=== PATIENT | female | born 1950 | race Caucasian/White ===

== ENCOUNTER 2021-08-22 11:18 | Inpatient (IN) ==
[2021-08-22] MEDS ORDERED: 0.9 % SODIUM CHLORIDE 1,000 ML IV ONE (12:08)
--- NOTE | 2021-08-22 12:13 | Emergency Department Note ---
HPI General Chief complaint: Weakness Stated complaint: weakness Time Seen by Provider: 08/22/21 11:58 Source: EMS Mode of arrival: EMS Limitations: no limitations History of Present Illness HPI Narrative: Narrative: 70 yo F w/ h/o DM2, CKD, HTN, CHF, AF, p/w generalized weakness. She reports that over the past week she has been increasingly weak and now no longer has the strength to get to the bathroom on her own. She was Dx'd w/ a UTI around , and was started on macrobid. Some time later her PCP changed the abx to cipro. While not stated, based on her description this seems to have been from a UCx result. She started cipro but then developed nausea, vomiting, and "explosive diarrhea". Shortly thereafter she stopped the medication. The nausea and vomiting have improved however the diarrhea persists. She has little appetite and feels generalized weakness. She also notes some urinary and fecal incontinence. She reports that she was switched back to macrobid after stopping the cipro. Related Data Home Medications Medication Instructions Recorded Confirmed acetaminophen 325 mg capsule 325 mg PO .COMPLEX PRN 05/29/19 07/07/21 (Tylenol) aflibercept 2 mg/0.05 mL 2 mg INTRAVITRE Q8W ml 05/29/19 07/07/21 intravitreal solution for injection (Eylea) furosemide 20 mg tablet 20 mg PO QAM 05/29/19 07/07/21 insulin aspart U-100 100 unit/mL See Rx Instructions SUB-Q TID 08/06/19 07/07/21 subcutaneous solution insulin glargine 100 unit/mL (3 25 unit SUB-Q QDAY ml 08/06/19 07/07/21 mL) subcutaneous pen (Lantus Solostar U-100 Insulin) apixaban 5 mg tablet (Eliquis) 5 mg PO BID 02/12/20 07/07/21 clobetasol 0.05 % topical cream 1 applic TOPICAL BID PRN g 04/09/21 07/07/21 metoprolol succinate 25 mg 25 mg PO QDAY tab 06/21/21 07/07/21 tablet,extended release 24 hr Previous Rx's Medication Instructions Recorded estradiol See Rx Instructions VAGINAL 08/07/19 .COMPLEX #42.5 g ferrous sulfate 325 mg (65 mg 325 mg PO QDAY #90 tab 06/21/21 iron) tablet Allergies Allergy/AdvReac Type Severity Reaction Status Date / Time codeine Allergy Severe Anaphylaxis Verified 07/07/21 08:28 Penicillins Allergy Severe Anaphylaxis Verified 07/07/21 08:28 pentazocine [From Talwin] Allergy Severe hallunicati Verified 07/07/21 08:28 on Sulfa (Sulfonamide Allergy Intermediate FACIAL Verified 07/07/21 08:28 Antibiotics) SWELLING [SULFA (SULFONAMIDE ANTIBIOTICS)] adhesive tape Allergy Unknown Blister Verified 07/07/21 08:28 epinephrine Allergy Unknown Unknown Verified 07/07/21 08:28 iodine Allergy Unknown Head to Verified 07/07/21 08:28 toe rash, "pumpkin orange" latex Allergy Unknown Unknown Verified 07/07/21 08:28 metformin Allergy Unknown Unknown Verified 07/07/21 08:28 ADHESIVE TAPE Allergy Severe Hives Uncoded 07/07/21 08:28 dye Allergy Unknown Unknown Uncoded 07/07/21 08:28 IV CONTRAST AdvReac Intermediate TURNED ME Uncoded 07/07/21 08:28 YELLOW Review of Systems ROS ROS Narrative: Narrative: All systems ED: reviewed and negative except as stated. [facility] Narrative Patient History Narrative: Narrative: Medical/Surgical/Family History All Active Problems (Updated 08/22/21 @ 19:07 by Rashel Berrios MD) Acute dehydration (Acute) Acute kidney injury (Acute) Hypercalcemia (Chronic) Localized edema due to fluid overload (Chronic) Anemia due to stage 3b chronic kidney disease (Acute) Hypertension in stage 3 chronic kidney disease due to type 2 diabetes mellitus (Chronic) Chronic kidney disease (CKD) stage G3b/A2, moderately decreased glomerular filtration rate (GFR) between 30-44 mL/min/1.73 square meter and albuminuria creatinine ratio between 30-299 mg/g (Chronic) Seborrheic keratosis (Chronic) Xerosis of skin (Chronic) Itching (Chronic) Ankle fracture, left (Chronic) Rash (Chronic) Angioma (Chronic) Lentigines (Chronic) Other seborrheic keratosis (Chronic) Melanocytic nevi of trunk (Chronic) Hormone replacement therapy (Chronic) Dystrophia unguium (Chronic) Other spondylosis with radiculopathy, lumbar region (Chronic) Proliferative diabetic retinopathy (Chronic) Polyneuropathy (Chronic) Other pruritus (Chronic) Overweight (Chronic) Pleural effusion (Chronic) Dyspnea (Chronic) Congestive heart failure (Chronic) Strain of lumbar region (Chronic) Lumbar radiculopathy (Chronic) Pneumonia, unspecified organism (Chronic) Decompensated chronic obstructive pulmonary disease with exacerbation (Chronic) 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) Type 2 diabetes mellitus with hyperglycemia (Chronic) Muscle weakness (generalized) (Chronic) Difficulty in walking, not elsewhere classified (Chronic) Chronic atrial fibrillation (Chronic) Acute kidney failure, unspecified (Chronic) Chronic kidney disease, stage III (moderate) (Chronic) Hypertensive heart and chronic kidney disease with heart failure and stage 1 through stage 4 chronic kidney disease, or chronic kidney disease (Chronic) Gastro-esophageal reflux disease without esophagitis (Chronic) Urinary tract infection, site not specified (Chronic) Retention of urine, unspecified (Chronic) Personal history of urinary infection (Chronic) Acquired absence of other specified parts of digestive tract (Chronic) Acquired absence of other organs (Chronic) Dizziness and giddiness (Chronic) Onychomycosis (Chronic) Type 2 diabetes mellitus with diabetic polyneuropathy (Chronic) Equinus contracture of ankle (Chronic) Equinus deformity of foot, acquired (Chronic) Hypertensive heart disease with heart failure (Chronic) Chronic systolic heart failure (Chronic) Paroxysmal atrial fibrillation (Chronic) Primary generalized (osteo)arthritis (Chronic) Osteopenia (Chronic) DDD (degenerative disc disease), lumbar (Chronic) Lumbar spondylosis (Chronic) Facet arthropathy, lumbar (Chronic) Weakness (Chronic) DVT (deep venous thrombosis) (Chronic) Hard of hearing (Chronic) Vitreous hemorrhage of right eye (Chronic) Cataract, nuclear sclerotic, both eyes (Chronic) Long-term insulin use (Chronic) senior living (current) use of anticoagulants (Chronic) superintendent terminal (current) use of aspirin (Chronic) Bowel incontinence (Chronic) Balance problem (Chronic) PTSD (post-traumatic stress disorder) (Chronic) Major depressive disorder, recurrent episode, moderate degree (Chronic) Allergic rhinitis (Chronic) Recent urinary tract infection (Chronic) Generalized anxiety disorder with panic attacks (Chronic) Acute cystitis with hematuria (Chronic) Fatigue (Chronic) Malaise (Chronic) Dyspnea on exertion (Chronic) SOB (shortness of breath) (Chronic) Back pain (Chronic) Joint pain (Chronic) Joint swelling (Chronic) Muscle cramps (Chronic) Muscle weakness (Chronic) Stiffness in joint (Chronic) Arthritis (Chronic) Paresthesias (Chronic) Focal neurological deficit (Chronic) Paralysis, diaphragm (Chronic) Medical History Acquired absence of other organs Acquired absence of other specified parts of digestive tract Acute combined systolic and diastolic congestive heart failure Acute cystitis with hematuria Allergic rhinitis Angioma /Hemanginma Ankle fracture, left Arthritis Back pain Balance problem Bowel incontinence Cataract, nuclear sclerotic, both eyes Chronic atrial fibrillation Chronic kidney disease, stage III (moderate) Chronic systolic heart failure DDD (degenerative disc disease), lumbar Decompensated chronic obstructive pulmonary disease with exacerbation Difficulty in walking, not elsewhere classified Dizziness and giddiness DVT (deep venous thrombosis) Dyspnea on exertion Dystrophia unguium Equinus contracture of ankle Equinus deformity of foot, acquired Facet arthropathy, lumbar Fatigue Focal neurological deficit Gastro-esophageal reflux disease without esophagitis Generalized anxiety disorder with panic attacks Hard of hearing Hormone replacement therapy Hypertensive heart and chronic kidney disease with heart failure and stage 1 th rough stage 4 chronic kidney disease, or chronic kidney disease Hypertensive heart disease with heart failure Itching Joint pain Joint swelling Lentigines superintendent terminal (current) use of anticoagulants senior living (current) use of aspirin Long-term insulin use Lumbar radiculopathy Lumbar spondylosis Major depressive disorder, recurrent episode, moderate degree Malaise Melanocytic nevi of trunk Muscle cramps Muscle weakness (generalized) Onychomycosis Bilateral Osteopenia Other pruritus Other seborrheic keratosis Other spondylosis with radiculopathy, lumbar region Overweight Paralysis, diaphragm Paresthesias Paroxysmal atrial fibrillation Personal history of urinary infection Pleural effusion Pneumonia, unspecified organism Polyneuropathy Primary generalized (osteo)arthritis Proliferative diabetic retinopathy PTSD (post-traumatic stress disorder) Rash Back, Shoulder, arm, leg Recent urinary tract infection Retention of urine, unspecified Seborrheic keratosis SOB (shortness of breath) Stiffness in joint Strain of lumbar region Type 2 diabetes mellitus with diabetic polyneuropathy Type 2 diabetes mellitus with hyperglycemia Urinary tract infection, site not specified Vitreous hemorrhage of right eye Weakness Xerosis of skin Surgical History Cataract extraction status, unspecified eye History of appendectomy (~1972) History of cholecystectomy (~2007) History of hysterectomy (~1999) History of laparoscopy History of lumbar surgery (~1984) History of lumpectomy of left breast History of oophorectomy Right History of thoracentesis (~2017) Bilateral Family History Mother Hallucinogen induced persisting dementia Cancer Uterine Hypertension Father Colon cancer Alcoholism Sister Methamphetamine addiction Depression Hypertension Diabetes Son Traumatic brain injury Depression Brother Hypertension Social History Smoking Status: Never smoker Alcohol Intake Frequency: does not drink Substance Use: does not use Exam Narrative Narrative: Narrative: General Limitations: no limitations General appearance: Present alert and in no apparent distress Head Head: Present atraumatic and normocephalic ENT ENT: Present normal oropharynx Chest Chest: Present normal inspection and symmetric chest wall rise Respiratory Respiratory: Present normal lung sounds bilaterally; Absent respiratory distress, rales/crackles, wheezes or stridor Cardiovascular Cardiovascular: Present regular rate, normal rhythm, +S1, +S2 and other (2+ B/L radial pulses); Absent systolic murmur or diastolic murmur Adbominal Abdominal: Present soft and normal bowel sounds; Absent distention or tenderness Extremities Extremities: Absent pedal edema Neurological Neurological: Present alert and oriented X3 Psychiatric Psychiatric: Present normal affect Skin Skin: Present warm (WNL) and dry Course Vital Signs Vital signs: Vital Signs Temperature 97.7 F 08/22/21 11:19 Pulse Rate 100 H 08/22/21 11:19 Respiratory Rate 14 08/22/21 11:19 Blood Pressure 143/66 08/22/21 11:19 Pulse Oximetry (%) 98 08/22/21 11:19 Temperature 98.6 F 08/22/21 17:44 Pulse Rate 83 08/22/21 17:44 Respiratory Rate 14 08/22/21 17:44 Blood Pressure 114/62 08/22/21 17:44 Pulse Oximetry (%) 97 08/22/21 17:44 MDM MDM Narrative Medical decision making narrative: Narrative: 70 yo F w/ h/o DM2, CKD, HTN, CHF, AF, p/w generalized weakness. DDx - sepsis, UTI, dehydration, metabolic/electrolyte d/o, LUISA, C diff Pt presented clinically stable, in NAD. She did not meet SIRS criteria. She was clinically dehydrated and had evidence of LUISA on her CMP w/ Cr increasing to 2.4 from her baseline of 1. While contaminated w/ squamous cells, her UA and Sx were suggestive of ongoing UTI. I reviewed her allergies and her intolerance of cipro, and d/w the pharmacist. Ultimately I felt that ertapenem would be the only option for her. C diff was a consideration however she did not produce a sample for us to test. I d/w Dr Rivera, hospitalist, who accepted her for admission. Lab Data Result diagrams: 08/22/21 11:50 08/22/21 11:50 Labs: Lab Results 08/22/21 08/22/21 08/22/21 Range/Units 11:50 11:50 13:35 WBC 3.0 L (4.5-11.0) K/mcL RBC 3.74 (3.59-5.38) M/mcL Hgb 10.2 L (11.2-15.7) g/dL Hct 31.2 L (34.1-44.9) % MCV 83.4 (80.0-100.0) fL MCH 27.3 (26.0-34.0) pg MCHC 32.7 (31.0-36.0) g/dL RDW 15.9 H (11.5-14.5) % Plt Count 163 (140-440) K/mcL MPV 8.9 (7.4-10.4) fL Neut % (Auto) 74.7 (38.0-78.0) % Lymph % (Auto) 8.9 L (15.5-49.0) % [place] % (Auto) 11.2 (1.0-12.0) % Eos % (Auto) 4.9 (0.0-7.0) % Baso % (Auto) 0.3 (0.0-2.0) % Lymph # (Auto) 0.27 L (1.50-4.80) K/mcL [place] # (Auto) 0.34 (0.10-0.90) K/mcL Eos # (Auto) 0.15 (0.00-0.70) K/mcL Baso # (Auto) 0.01 (0.00-0.30) K/mcL Absolute Neutrophils 2.27 (1.80-8.00) K/mcL Sodium 137 (133-145) mmol/L Potassium 3.8 (3.3-5.1) mmol/L Chloride 103 (96-108) mmol/L Carbon Dioxide 23 (22-30) mmol/L Anion Gap 11.0 (8.0-16.0) BUN 20 (8-23) mg/dL Creatinine 2.4 H (0.6-1.1) mg/dL GFR Calculation 20 Glucose 145 H (70-105) mg/dL Calcium 8.4 L (8.6-10.4) mg/dL Total Bilirubin 0.7 (0.1-1.0) mg/dL AST 19 (<32) U/L ALT 6 (<40) U/L Alkaline Phosphatase 106 (39-117) U/L Total Protein 6.2 (5.9-8.4) gm/dL Albumin 3.0 L (3.2-5.2) gm/dL Globulin 3.2 (2.2-3.7) gm/dL Albumin/Globulin Ratio 0.9 L (1.0-2.3) Urine Color Yellow Urine Appearance Cloudy A (Clear) Urine pH 6.0 (5.0-9.0) Ur Specific [place] 1.009 (1.000-1.035) Urine Protein 30 A (Negative) mg/dL Urine Glucose (UA) Negative (Negative) mg/dL Urine Ketones Negative (Negative) mg/dL Urine Occult Blood 0.03 (Negative) mg/dL Urine Nitrate Negative (Negative) Urine Bilirubin Negative (Negative) mg/dL Urine Urobilinogen Negative mg/dL Ur Leukocyte Esterase 500 A (Negative) /uL Urine RBC 15 H (0-3) /hpf Urine WBC 127 H (0-4) /hpf Ur Squamous Epith Cells 14 H (0-4) /hpf Urine Bacteria Few A (0) /hpf Hyaline Casts 18 H (0-2) /lph Other Casts Few A (None) /lph Ur Culture Indicated? No ED POC Tests ED POC Tests: CHIA - Influenza A Negative CHAI - Influenza B Negative CHAI - SARS Antigen Negative Discharge Plan Patient/Caregiver Discharge Instructions Pt seen by PICK OUT HAND/PA only: No Clinical Impression: Acute dehydration, Urinary tract infection, site not specified, Acute kidney injury Patient Disposition: Xfer As Inpt ([facility]) Condition: Good Discharge Date/Time: 08/22/21 17:27 Discharge Location: [facility]
[2021-08-22 12:51] LABS: Basophils # (Auto) 0.01 K/mcL (0.00-0.30); Basophils % (Auto) 0.3 % (0.0-2.0); Eosinophils # (Auto) 0.15 K/mcL (0.00-0.70); Eosinophils % (Auto) 4.9 % (0.0-7.0); Hematocrit 31.2 % (34.1-44.9); Hemoglobin 10.2 g/dL (11.2-15.7); Lymphocytes # (Auto) 0.27 K/mcL (1.50-4.80); Lymphocytes % (Auto) 8.9 % (15.5-49.0); Mean Cell Volume 83.4 fL (80.0-100.0); Mean Corpuscular HGB Conc 32.7 g/dL (31.0-36.0); Mean Platelet Volume 8.9 fL (7.4-10.4); Monocytes # (Auto) 0.34 K/mcL (0.10-0.90); Monocytes % (Auto) 11.2 % (1.0-12.0); Neutrophils % (Auto) 74.7 % (38.0-78.0); Platelet Count 163 K/mcL (140-440); RBC 3.74 M/mcL (3.59-5.38); Red Cell Distribution Width 15.9 % (11.5-14.5)
[2021-08-22 13:12] LABS: ALT/SGPT 6 U/L (<40); AST/SGOT 19 U/L (<32); Albumin/Globulin Ratio 0.9 (1.0-2.3); Alkaline Phosphatase 106 U/L (39-117); Bilirubin,Total 0.7 mg/dL (0.1-1.0); Blood Urea Nitrogen 20 mg/dL (8-23); Calcium 8.4 mg/dL (8.6-10.4); Carbon Dioxide 23 mmol/L (22-30); Chloride 103 mmol/L (96-108); Globulin 3.2 gm/dL (2.2-3.7); Glomerular Filtration Rate 20; Glucose 145 mg/dL (70-105)
[2021-08-22 14:40] LABS: Appearance,Urine CLOUDY (Clear); Bacteria,Urine FEW /hpf (0); Bilirubin,Urine Negative (Negative); Color,Urine YELLOW; Culture Indicated,Urine No; Glucose,Urine (UA) Negative (Negative); Ketones,Urine Negative (Negative); Leukocyte Esterase,Urine 500 /uL (Negative); Nitrate,Urine Negative (Negative); Other Casts,Urine FEW /lph; Protein,Urine 30 mg/dL (Negative); Specific Gravity,Urine 1.009 (1.000-1.035); Urine Blood 0.03 mg/dL (Negative); Urine Hyaline Cast 18 /lph (0-2); Urine RBC 15 /hpf (0-3); Urine Squamous Epithelial Cell 14 /hpf (0-4); Urine WBC 127 /hpf (0-4); Urobilinogen,Urine Negative
[2021-08-22] MEDS ORDERED: ERTAPENEM 1 GM in 0.9 % SODIUM CHLORIDE 50 ML IV ONE (15:27)
--- NOTE | 2021-08-22 17:20 | Internal Med History&Physical ---
HPI History of Present Illness Patient information: Note initiated : 08/22/21 at 5:12 pm Service Date, if different from initiated Date: [] Patient: Lizet Crowley 70 y/o F admitted on for weakness. Chief Complaint: [] History of present illness: Ms. Crowley is a 70 year old F Patient presents to the ED with generalized weakness and some diarrhea. Patient has been dealing with a urinary tract infection recently. She was started on Macrobid and then was switched to Cipro and then she did not tolerate Cipro very well she developed nausea vomiting diarrhea and that she switched back to Macrobid. Her creatinine is elevated baseline is typically one half and she is 2.4. She is so weak that she cannot get the bathroom and her cannot take care of her. She had a history of recurrent UTIs and she is to see Maryann but has not seen a urologist since then. Last episode nausea vomiting was 3 days ago but she still having the diarrhea she says 2 to 4-day watery. Her allergies list penicillins anaphylaxis, she had last taken penicillin in the 70s and she said she had a rash in her throat felt a little tight but she denies states she had any shortness of breath. She does not call any allergies to sulfa medications/Bactrim when asked although says facial swelling. Review of Systems: Pertinent positives as above. Denies headache/fever/chills/chest or abdominal pain/cough/dyspnea. Otherwise see above. PFSH PFSH All Active Problems Hypercalcemia (Chronic) Localized edema due to fluid overload (Chronic) Anemia due to stage 3b chronic kidney disease (Acute) Hypertension in stage 3 chronic kidney disease due to type 2 diabetes mellitus (Chronic) Chronic kidney disease (CKD) stage G3b/A2, moderately decreased glomerular filtration rate (GFR) between 30-44 mL/min/1.73 square meter and albuminuria creatinine ratio between 30-299 mg/g (Chronic) Seborrheic keratosis (Chronic) Xerosis of skin (Chronic) Itching (Chronic) Ankle fracture, left (Chronic) Rash (Chronic) Angioma (Chronic) Lentigines (Chronic) Other seborrheic keratosis (Chronic) Melanocytic nevi of trunk (Chronic) Hormone replacement therapy (Chronic) Dystrophia unguium (Chronic) Other spondylosis with radiculopathy, lumbar region (Chronic) Proliferative diabetic retinopathy (Chronic) Polyneuropathy (Chronic) Other pruritus (Chronic) Overweight (Chronic) Pleural effusion (Chronic) Dyspnea (Chronic) Congestive heart failure (Chronic) Strain of lumbar region (Chronic) Lumbar radiculopathy (Chronic) Pneumonia, unspecified organism (Chronic) Decompensated chronic obstructive pulmonary disease with exacerbation (Chronic) 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) Type 2 diabetes mellitus with hyperglycemia (Chronic) Muscle weakness (generalized) (Chronic) Difficulty in walking, not elsewhere classified (Chronic) Chronic atrial fibrillation (Chronic) Acute kidney failure, unspecified (Chronic) Chronic kidney disease, stage III (moderate) (Chronic) Hypertensive heart and chronic kidney disease with heart failure and stage 1 through stage 4 chronic kidney disease, or chronic kidney disease (Chronic) Gastro-esophageal reflux disease without esophagitis (Chronic) Urinary tract infection, site not specified (Chronic) Retention of urine, unspecified (Chronic) Personal history of urinary infection (Chronic) Acquired absence of other specified parts of digestive tract (Chronic) Acquired absence of other organs (Chronic) Dizziness and giddiness (Chronic) Onychomycosis (Chronic) Type 2 diabetes mellitus with diabetic polyneuropathy (Chronic) Equinus contracture of ankle (Chronic) Equinus deformity of foot, acquired (Chronic) Hypertensive heart disease with heart failure (Chronic) Chronic systolic heart failure (Chronic) Paroxysmal atrial fibrillation (Chronic) Primary generalized (osteo)arthritis (Chronic) Osteopenia (Chronic) DDD (degenerative disc disease), lumbar (Chronic) Lumbar spondylosis (Chronic) Facet arthropathy, lumbar (Chronic) Weakness (Chronic) DVT (deep venous thrombosis) (Chronic) Hard of hearing (Chronic) Vitreous hemorrhage of right eye (Chronic) Cataract, nuclear sclerotic, both eyes (Chronic) Long-term insulin use (Chronic) MCFP (current) use of 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) Bowel incontinence (Chronic) Balance problem (Chronic) PTSD (post-traumatic stress disorder) (Chronic) Major depressive disorder, recurrent episode, moderate degree (Chronic) Allergic rhinitis (Chronic) Recent urinary tract infection (Chronic) Generalized anxiety disorder with panic attacks (Chronic) Acute cystitis with hematuria (Chronic) Fatigue (Chronic) Malaise (Chronic) Dyspnea on exertion (Chronic) SOB (shortness of breath) (Chronic) Back pain (Chronic) Joint pain (Chronic) Joint swelling (Chronic) Muscle cramps (Chronic) Muscle weakness (Chronic) Stiffness in joint (Chronic) Arthritis (Chronic) Paresthesias (Chronic) Focal neurological deficit (Chronic) Paralysis, diaphragm (Chronic) Medical History Acquired absence of other organs Acquired absence of other specified parts of digestive tract Acute combined systolic and diastolic congestive heart failure Acute cystitis with hematuria Allergic rhinitis Angioma /Hemanginma Ankle fracture, left Arthritis Back pain Balance problem Bowel incontinence Cataract, nuclear sclerotic, both eyes Chronic atrial fibrillation Chronic kidney disease, stage III (moderate) Chronic systolic heart failure DDD (degenerative disc disease), lumbar Decompensated chronic obstructive pulmonary disease with exacerbation Difficulty in walking, not elsewhere classified Dizziness and giddiness DVT (deep venous thrombosis) Dyspnea on exertion Dystrophia unguium Equinus contracture of ankle Equinus deformity of foot, acquired Facet arthropathy, lumbar Fatigue Focal neurological deficit Gastro-esophageal reflux disease without esophagitis Generalized anxiety disorder with panic attacks Hard of hearing Hormone replacement therapy Hypertensive heart and chronic kidney disease with heart failure and stage 1 through stage 4 chronic kidney disease, or chronic kidney disease Hypertensive heart disease with heart failure Itching Joint pain Joint swelling Lentigines MCFP (current) use of anticoagulants truck terminal manager (current) use of aspirin Long-term insulin use Lumbar radiculopathy Lumbar spondylosis Major depressive disorder, recurrent episode, moderate degree Malaise Melanocytic nevi of trunk Muscle cramps Muscle weakness (generalized) Onychomycosis Bilateral Osteopenia Other pruritus Other seborrheic keratosis Other spondylosis with radiculopathy, lumbar region Overweight Paralysis, diaphragm Paresthesias Paroxysmal atrial fibrillation Personal history of urinary infection Pleural effusion Pneumonia, unspecified organism Polyneuropathy Primary generalized (osteo)arthritis Proliferative diabetic retinopathy PTSD (post-traumatic stress disorder) Rash Back, Shoulder, arm, leg Recent urinary tract infection Retention of urine, unspecified Seborrheic keratosis SOB (shortness of breath) Stiffness in joint Strain of lumbar region Type 2 diabetes mellitus with diabetic polyneuropathy Type 2 diabetes mellitus with hyperglycemia Urinary tract infection, site not specified Vitreous hemorrhage of right eye Weakness Xerosis of skin Surgical History Cataract extraction status, unspecified eye History of appendectomy (~1972) History of cholecystectomy (~2007) History of hysterectomy (~1999) History of laparoscopy History of lumbar surgery (~1984) History of lumpectomy of left breast History of oophorectomy Right History of thoracentesis (~2016) Bilateral Family History Mother Hallucinogen induced persisting dementia Cancer Uterine Hypertension Father Colon cancer Alcoholism Sister Methamphetamine addiction Depression Hypertension Diabetes Son Traumatic brain injury Depression Brother Hypertension Social History marital status: occupational status: retired and disabled physical activity: none smoking status: Never smoker alcohol intake frequency: does not drink substance use type: does not use MEDS/ALLERGIES Home Medications and Allergies Home Medications Medication Instructions Recorded Confirmed Type acetaminophen 325 mg capsule 325 mg PO .COMPLEX PRN 05/29/19 07/07/21 History (Tylenol) aflibercept 2 mg/0.05 mL 2 mg INTRAVITRE Q8W ml 05/29/19 07/07/21 History intravitreal solution for injection (Eylea) furosemide 20 mg tablet 20 mg PO QAM 05/29/19 07/07/21 History insulin aspart U-100 100 unit/mL See Rx Instructions SUB-Q TID 08/06/19 07/07/21 History subcutaneous solution insulin glargine 100 unit/mL (3 25 unit SUB-Q QDAY ml 08/06/19 07/07/21 History mL) subcutaneous pen (Lantus Solostar U-100 Insulin) estradiol See Rx Instructions VAGINAL 08/07/19 07/07/21 Rx .COMPLEX #42.5 g apixaban 5 mg tablet (Eliquis) 5 mg PO BID 02/12/20 07/07/21 History clobetasol 0.05 % topical cream 1 applic TOPICAL BID PRN g 04/09/21 07/07/21 History ferrous sulfate 325 mg (65 mg 325 mg PO QDAY #90 tab 06/21/21 07/07/21 Rx iron) tablet metoprolol succinate 25 mg 25 mg PO QDAY tab 06/21/21 07/07/21 History tablet,extended release 24 hr Allergies Allergy/AdvReac Type Severity Reaction Status Date / Time codeine Allergy Severe Anaphylaxis Verified 07/07/21 08:28 Penicillins Allergy Severe Anaphylaxis Verified 07/07/21 08:28 pentazocine [From Talwin] Allergy Severe hallunicati Verified 07/07/21 08:28 on Sulfa (Sulfonamide Allergy Intermediate FACIAL Verified 07/07/21 08:28 Antibiotics) SWELLING [SULFA (SULFONAMIDE ANTIBIOTICS)] adhesive tape Allergy Unknown Blister Verified 07/07/21 08:28 epinephrine Allergy Unknown Unknown Verified 07/07/21 08:28 iodine Allergy Unknown Head to Verified 07/07/21 08:28 toe rash, "pumpkin orange" latex Allergy Unknown Unknown Verified 07/07/21 08:28 metformin Allergy Unknown Unknown Verified 07/07/21 08:28 ADHESIVE TAPE Allergy Severe Hives Uncoded 07/07/21 08:28 dye Allergy Unknown Unknown Uncoded 07/07/21 08:28 IV CONTRAST AdvReac Intermediate TURNED ME Uncoded 07/07/21 08:28 YELLOW EXAM Constitutional Vitals: Temp Pulse Resp BP Pulse Ox 97.7 F 96 H 14 146/73 98 08/22/21 11:19 08/22/21 16:01 08/22/21 11:19 08/22/21 16:01 08/22/21 16:01 Exam: General: Alert, Awake, No acute Distress Eyes/N/T: EOMI, PERRL, dry MM Head/Neck: neck supple, normocephalic atraumatic CV: Regular with occasional irregularity, 2/6 SM, normal s1/s2 Pulm: Clear b/l, no wheezing/rhonchi/rales Abd: soft, nontender, +BS x4 Ext: no clubbing/cyanosis, b/l LE trace edema Neuro: Alert, no focal deficits, moves all extremities, CN 2-12 grossly intact, symmetrical strength b/l upper/lower, sensations intact b/l upper/lower Skin: warm/dry DATA Data Completed and Pending Labs: Labs from last 24 hours 08/22/21 08/22/21 08/22/21 13:35 11:50 11:50 WBC 3.0 L RBC 3.74 Hgb 10.2 L Hct 31.2 L MCV 83.4 MCH 27.3 MCHC 32.7 RDW 15.9 H Plt Count 163 MPV 8.9 Neut % (Auto) 74.7 Lymph % (Auto) 8.9 L [place] % (Auto) 11.2 Eos % (Auto) 4.9 Baso % (Auto) 0.3 Lymph # (Auto) 0.27 L [place] # (Auto) 0.34 Eos # (Auto) 0.15 Baso # (Auto) 0.01 Absolute Neutrophils 2.27 Sodium 137 Potassium 3.8 Chloride 103 Carbon Dioxide 23 Anion Gap 11.0 BUN 20 Creatinine 2.4 H GFR Calculation 20 Glucose 145 H Calcium 8.4 L Total Bilirubin 0.7 AST 19 ALT 6 Alkaline Phosphatase 106 Total Protein 6.2 Albumin 3.0 L Globulin 3.2 Albumin/Globulin Ratio 0.9 L Urine Color Yellow Urine Appearance Cloudy A Urine pH 6.0 Ur Specific [place] 1.009 Urine Protein 30 A Urine Glucose (UA) Negative Urine Ketones Negative Urine Occult Blood 0.03 Urine Nitrate Negative Urine Bilirubin Negative Urine Urobilinogen Negative Ur Leukocyte Esterase 500 A Urine RBC 15 H Urine WBC 127 H Ur Squamous Epith Cells 14 H Urine Bacteria Few A Hyaline Casts 18 H Other Casts Few A Ur Culture Indicated? No A/P Narrative A/P Narrative: A: *UTI, recurrent: *SIRS: *Diarrhea: *Generalized weakness/deconditioning/debility: unable to care for at home *Volume depletion: *LUISA on CKD IIIb: Follows with Dr. Whitten *Anemia, chronic: *DM: *HTN: *PAF: On apixaban/BB *Left diaphragm paralysis: Follows with pulmonology * P: -Rocephin, pending UC -IVF o/n -C. difficile and stool culture -cont eliquis/BB -basal and SSI -pt/ot -CM for placement -Medication home reconciliation -ppx: eliquis DNR Time Spent With Patient Time: Total time spent is greater than 50% in coordination of care (as documented) at patient's floor/unit and/or counseling patient:
[2021-08-22] MEDS ORDERED: DEXTROSE 31 GM ORAL.SUSP PO PRN (17:44)
[2021-08-22] MEDS ORDERED: DEXTROSE 50% 50 ML VIAL IV PRN (17:44)
[2021-08-22] MEDS ORDERED: POTASSIUM CHLORIDE 40 MEQ in DEXTROSE 5% IN WATER 500 ML IV PRN (17:44)
[2021-08-22] MEDS ORDERED: METOPROLOL TARTRATE 5 MG/5 ML VIAL IV PRN (17:44)
[2021-08-22] MEDS ORDERED: ACETAMINOPHEN 325 MG TABLET PO PRN (17:44)
[2021-08-22] MEDS ORDERED: 0.9 % SODIUM CHLORIDE 1,000 ML IV SCH (17:44)
[2021-08-22] MEDS ORDERED: POTASSIUM CHLORIDE 20 MEQ TABLET PO PRN ×2 (17:44)
[2021-08-22] MEDS ORDERED: MAGNESIUM SULFATE 2 GM/50 ML BAG IV PRN (17:44)
[2021-08-22] MEDS ORDERED: IPRATROPIUM/ALBUTEROL 3 ML AMPUL.NEB NEB PRN (17:44)
[2021-08-22] MEDS ORDERED: ONDANSETRON 4 MG/2 ML VIAL IV PRN (17:44)
[2021-08-22] MEDS ORDERED: cefTRIAXone 1 GM in DEXTROSE 5% IN WATER 50 ML IV SCH (20:00)
[2021-08-22] MEDS ORDERED: cefTRIAXone 1 GM VIAL ONE (20:21)
[2021-08-22] MEDS: 0.9 % SODIUM CHLORIDE 10 ML SYRINGE IV SCH (20:27)
[2021-08-22] MEDS: INSULIN LISPRO 1 UNIT/0.01 ML UNIT SQ SCH (20:27)
[2021-08-22 21:25] LABS: Appearance,Urine CLOUDY (Clear); Bacteria,Urine MOD /hpf (0); Bilirubin,Urine Negative (Negative); Color,Urine YELLOW; Culture Indicated,Urine yes; Glucose,Urine (UA) Negative (Negative); Ketones,Urine Negative (Negative); Leukocyte Esterase,Urine 500 /uL (Negative); Mucus,Urine FEW /hpf; Nitrate,Urine Negative (Negative); Protein,Urine 30 mg/dL (Negative); Specific Gravity,Urine 1.008 (1.000-1.035); Urine Blood 0.03 mg/dL (Negative); Urine RBC 13 /hpf (0-3); Urine Squamous Epithelial Cell 2 /hpf (0-4); Urine WBC 108 /hpf (0-4); Urobilinogen,Urine Negative
[2021-08-23] MEDS: 0.9 % SODIUM CHLORIDE 10 ML SYRINGE IV SCH ×3 (05:53→20:10)
[2021-08-23 06:57] LABS: Basophils # (Auto) 0.01 K/mcL (0.00-0.30); Basophils % (Auto) 0.4 % (0.0-2.0); Eosinophils # (Auto) 0.18 K/mcL (0.00-0.70); Eosinophils % (Auto) 6.4 % (0.0-7.0); Hematocrit 27.1 % (34.1-44.9); Hemoglobin 8.9 g/dL (11.2-15.7); Lymphocytes # (Auto) 0.33 K/mcL (1.50-4.80); Lymphocytes % (Auto) 11.8 % (15.5-49.0); Mean Cell Volume 84.2 fL (80.0-100.0); Mean Corpuscular HGB Conc 32.8 g/dL (31.0-36.0); Mean Platelet Volume 9.2 fL (7.4-10.4); Monocytes # (Auto) 0.32 K/mcL (0.10-0.90); Monocytes % (Auto) 11.4 % (1.0-12.0); Platelet Count 144 K/mcL (140-440); RBC 3.22 M/mcL (3.59-5.38); Red Cell Distribution Width 16.1 % (11.5-14.5); WBC 2.8 K/mcL (4.5-11.0)
--- NOTE | 2021-08-23 07:12 | Internal Med Progress Note ---
SUBJECTIVE Subjective Patient information: Note initiated : 08/23/21 at 7:09 am Service Date, if different from initiated Date: [] Patient: Lizet Crowley 70 y/o F admitted on 08/22/21 for weakness. Chief Complaint: [] Interval history: History of present illness: Ms. Crowley is a 70 year old F Patient presents to the ED with generalized weakness and some diarrhea. Patient has been dealing with a urinary tract infection recently. She was sta rted on Macrobid and then was switched to Cipro and then she did not tolerate Cipro very well she developed nausea vomiting diarrhea and that she switched back to Macrobid. Her creatinine is elevated baseline is typically one half and she is 2.4. She is so weak that she cannot get the bathroom and her cannot take care of her. She had a history of recurrent UTIs and she is to see Maryann but has not seen a urologist since then. Last episode nausea vomiting was 3 days ago but she still having the diarrhea she says 2 to 4-day watery. Her allergies list penicillins anaphylaxis, she had last taken penicillin in the and she said she had a rash in her throat felt a little tight but she denies states she had any shortness of breath. She does not call any allergies to sulfa medications/Bactrim when asked although says facial swelling. 08/23 Awaiting stool sample. No new complaints or overnight events. Creatinine no change. 1 episode of diarrhea last night Hypomagnesemia. IV fluids today. Review of Systems: denies headache/fever/chills/nausea/vomiting/chest or abdominal pa in/cough/dyspnea. Otherwise see above. Constitutional Vitals: Vital Signs Temp Pulse Resp BP Pulse Ox 97.5 F 82 12 153/75 98 08/23/21 03:38 08/23/21 03:38 08/23/21 03:38 08/23/21 03:38 08/23/21 03:38 Period Temp Pulse Resp BP Sys/Lucero Pulse Ox Last 24 Hr 97.5 F-98.6 F 74-101 12-16 114-153/55-75 97-100 Intake and Output 08/22/21 08/23/21 08/23/21 21:59 05:59 13:59 Intake Total 1050 200 Output Total 500 Balance 1050 -300 Weight 71.384 kg Intake & Output: Intake & Output 08/22/21 08/23/21 08/23/21 21:59 05:59 13:59 Intake Total 1050 200 Output Total 500 Balance 1050 -300 Weight 71.384 kg Intake: IV 1050 Sodium Chloride 0.9% 1,000 ml @ 1000 Wide Open IV BOLUS ONE Rx#: [id number] INVanz 1 GM In Sodium Chloride 50 0.9% 50 ml @ 100 mls/hr IV ONCE ONE Rx#:[id number] Oral 200 Output: Urine Catheter Amount 500 Other: Urine Appearance Cloudy Uretheral (Lei) Cloudy Urine Color Pale Uretheral (Lei) Straw Urine Odor Uretheral (Lei) Strong Stool Size Moderate Stool Color Brown Stool Consistency Soft # Bowel Movements 1 # of times incontinent of 1 Bowels Exam: General: Alert, Awake, No acute Distress Eyes/N/T: EOMI, Head/Neck: neck supple, CV: Regular with occasional irregularity, 2/6 SM, Pulm: Clear b/l, no wheezing/rhonchi/rales Abd: soft, nontender, +BS x4 Ext: no clubbing/cyanosis, b/l LE trace edema Neuro: Alert, no focal deficits, moves all extremities, Skin: warm/dry OBJ DATA Labs CBC & Chem 7: 08/23/21 05:21 08/23/21 05:21 Labs: Abnormal Lab Results 08/23/21 08/22/21 08/22/21 05:21 20:38 13:35 WBC 2.8 L RBC 3.22 L Hgb 8.9 L Hct 27.1 L RDW 16.1 H Lymph % (Auto) 11.8 L Lymph # (Auto) 0.33 L Creatinine Glucose Calcium Albumin Albumin/Globulin Ratio Urine Appearance Cloudy A Cloudy A Urine Protein 30 A 30 A Ur Leukocyte Esterase 500 A 500 A Urine RBC 13 H 15 H Urine WBC 108 H 127 H Ur Squamous Epith Cells 14 H Urine Bacteria Mod A Few A Hyaline Casts 18 H Other Casts Few A Urine Mucus Few A 08/22/21 08/22/21 11:50 11:50 WBC 3.0 L RBC Hgb 10.2 L Hct 31.2 L RDW 15.9 H Lymph % (Auto) 8.9 L Lymph # (Auto) 0.27 L Creatinine 2.4 H Glucose 145 H Calcium 8.4 L Albumin 3.0 L Albumin/Globulin Ratio 0.9 L Urine Appearance Urine Protein Ur Leukocyte Esterase Urine RBC Urine WBC Ur Squamous Epith Cells Urine Bacteria Hyaline Casts Other Casts Urine Mucus Meds: Medications Acetaminophen (Acetaminophen 325 Mg Tablet) 650 mg PO Q6HP PRN; Protocol PRN Reason: Per Pain Protocol/Fever > 101 Albuterol/Ipratropium (Ipratropium/Albuterol 3 Ml Ampul.Neb) 3 ml NEB Q4HP PRN PRN Reason: Shortness Of Breath Ceftriaxone Sodium (Ceftriaxone 1 Gm Vial) 1 gm IV Q24H [facility] Dextrose (Dextrose 50% 50 Ml Vial) 0 ml IV UD PRN PRN Reason: Hypoglycemia Diagnostic Test (Pha) (Accu-Chek 1 Each Strip) 1 each FS [facility] Last Admin: 08/22/21 20:27 Dose: 1 each Documented by: Glucose (Dextrose 31 Gm Oral.Susp) 15 gm PO PRN PRN PRN Reason: Hypoglycemia Potassium Chloride 40 meq/ (Dextrose) 520 mls @ 130 mls/hr IV UD PRN PRN Reason: Potassium < 3 Magnesium Sulfate (Magnesium Sulfate) 2 gm in 50 mls @ 50 mls/hr IV UD PRN PRN Reason: Magnesium </= 1.6 Insulin Human Lispro (Insulin Lispro 1 Unit/0.01 Ml Unit) 0 unit SQ [facility]; Protocol Last Admin: 08/22/21 20:27 Dose: Not Given Documented by: Metoprolol Tartrate (Metoprolol Tartrate 5 Mg/5 Ml Vial) 5 mg IV Q2HP PRN PRN Reason: Tachyarrhythmias HR>110 Ondansetron HCl (Ondansetron 4 Mg/2 Ml Vial) 4 mg IV Q4HP PRN PRN Reason: Nausea And Vomiting Potassium Chloride (Potassium Chloride 20 Meq Tablet) 40 meq PO UD PRN PRN Reason: Potssium is 3-3.5 Potassium Chloride (Potassium Chloride 20 Meq Tablet) 40 meq PO UD PRN PRN Reason: Potassium < 3 Sodium Chloride (0.9 % Sodium Chloride 10 Ml Syringe) 10 ml IV Q8 [facility] Last Admin: 08/23/21 05:53 Dose: Not Given Documented by: A/P Narrative A/P Narrative: A: *UTI, recurrent: *SIRS: improved *Diarrhea: *Generalized weakness/deconditioning/debility: unable to care for at home *Volume depletion: *LUISA on CKD IIIb: Follows with Dr. Whitten -2/2 above + likely suspect macrobid *Anemia, chronic: *DM: *HTN: *PAF: On apixaban/BB *Left diaphragm paralysis: Follows with pulmonology *Hypomagnesemia: P: -Rocephin, pending UC -IVF today -C. difficile and stool culture -cont eliquis/BB -basal and SSI -pt/ot -CM for placement -Medication home reconciliation -ppx: eliquis DNR Time Spent With Patient Time: Total time spent is greater than 50% in coordination of care (as documented) at patient's floor/unit and/or counseling patient: QUALITY VTE Deep Vein Thrombosis/Pulmonary Embolism Present on Admission: No
[2021-08-23 07:33] LABS: ALT/SGPT 5 U/L (<40); AST/SGOT 17 U/L (<32); Albumin 2.5 gm/dL (3.2-5.2); Albumin/Globulin Ratio 0.9 (1.0-2.3); Alkaline Phosphatase 88 U/L (39-117); Bilirubin,Direct < 0.2 mg/dL (0-0.3); Bilirubin,Total 0.4 mg/dL (0.1-1.0); Blood Urea Nitrogen 24 mg/dL (8-23); Calcium 7.8 mg/dL (8.6-10.4); Carbon Dioxide 21 mmol/L (22-30); Chloride 105 mmol/L (96-108); Globulin 2.9 gm/dL (2.2-3.7); Glomerular Filtration Rate 20; Glucose 89 mg/dL (70-105); Lactate Dehydrogenase 162 U/L (135-225); Phosphorous 3.5 mg/dL (2.5-4.5); Triglycerides 102 mg/dL (<150); Uric Acid 8.5 mg/dL (2.5-8.0)
[2021-08-23] MEDS ORDERED: MAGNESIUM SULFATE 2 GM/50 ML BAG IV ONE (08:13)
[2021-08-23] MEDS ORDERED: 0.9 % SODIUM CHLORIDE 1,000 ML IV SCH (08:15)
[2021-08-23] MEDS: APIXABAN 5 MG TABLET PO SCH ×2 (08:56→20:11)
[2021-08-23] MEDS: cefTRIAXone 1 GM VIAL IV SCH (08:56)
[2021-08-23] MEDS: INSULIN LISPRO 1 UNIT/0.01 ML UNIT SQ SCH ×4 (09:17→20:10)
[2021-08-23] MEDS ORDERED: INSULIN GLARGINE, HUMAN 1 UNIT/0.01 ML SQ SCH (10:30)
[2021-08-23] MEDS ORDERED: MAGNESIUM SULFATE 8.12 MEQ/2 ML VIAL IV ONE (14:24)
[2021-08-23] MEDS: METOPROLOL SUCCINATE 25 MG TAB.XL.24H PO SCH (14:53)
[2021-08-23] MEDS: INSULIN GLARGINE, HUMAN 1 UNIT/0.01 ML SQ SCH (20:12)
[2021-08-24] MEDS: 0.9 % SODIUM CHLORIDE 10 ML SYRINGE IV SCH ×3 (04:08→20:29)
[2021-08-24] MEDS: INSULIN LISPRO 1 UNIT/0.01 ML UNIT SQ SCH ×4 (06:56→20:28)
[2021-08-24 09:05] LABS: Basophils # (Auto) 0.01 K/mcL (0.00-0.30); Basophils % (Auto) 0.3 % (0.0-2.0); Eosinophils % (Auto) 6.8 % (0.0-7.0); Hematocrit 28.5 % (34.1-44.9); Hemoglobin 9.1 g/dL (11.2-15.7); Lymphocytes # (Auto) 0.34 K/mcL (1.50-4.80); Lymphocytes % (Auto) 11.6 % (15.5-49.0); Mean Cell Volume 85.1 fL (80.0-100.0); Mean Corpuscular HGB Conc 31.9 g/dL (31.0-36.0); Mean Platelet Volume 9.5 fL (7.4-10.4); Monocytes # (Auto) 0.37 K/mcL (0.10-0.90); Monocytes % (Auto) 12.7 % (1.0-12.0); Neutrophils % (Auto) 68.6 % (38.0-78.0); Platelet Count 168 K/mcL (140-440); RBC 3.35 M/mcL (3.59-5.38); Red Cell Distribution Width 16.4 % (11.5-14.5); WBC 2.9 K/mcL (4.5-11.0)
[2021-08-24] MEDS: APIXABAN 5 MG TABLET PO SCH ×2 (09:07→20:28)
[2021-08-24] MEDS: METOPROLOL SUCCINATE 25 MG TAB.XL.24H PO SCH (09:07)
[2021-08-24] MEDS: cefTRIAXone 1 GM VIAL IV SCH (09:13)
[2021-08-24 09:33] LABS: ALT/SGPT 6 U/L (<40); AST/SGOT 20 U/L (<32); Albumin 2.6 gm/dL (3.2-5.2); Albumin/Globulin Ratio 0.9 (1.0-2.3); Alkaline Phosphatase 91 U/L (39-117); Bilirubin,Total 0.3 mg/dL (0.1-1.0); Blood Urea Nitrogen 23 mg/dL (8-23); Carbon Dioxide 20 mmol/L (22-30); Chloride 110 mmol/L (96-108); Glomerular Filtration Rate 22; Glucose 95 mg/dL (70-105); Phosphorous 3.2 mg/dL (2.5-4.5)
--- NOTE | 2021-08-24 14:00 | Internal Med Progress Note ---
SUBJECTIVE Subjective Patient information: Note initiated : 08/24/21 at 1:51 pm Service Date, if different from initiated Date: [] Patient: Lizet Crowley 70 y/o F admitted on 08/22/21 for weakness. Chief Complaint: [UTI] Interval history: Patient presents to the ED with generalized weakness and some diarrhea. Patient has been dealing with a urinary tract infection recently. She was started on Macrobid and then was switched to Cipro and then she did not tolerate Cipro very well she developed nausea vomiting diarrhea and that she switched ba ck to Macrobid. Her creatinine is elevated baseline is typically one half and she is 2.4. She is so weak that she cannot get the bathroom and her cannot take care of her. She had a history of recurrent UTIs and she is to see Maryann but has not seen a urologist since then. Last episode nausea vomiting was 3 days ago but she still having the diarrhea she says 2 to 4-day watery. Her allergies list penicillins anaphylaxis, she had last taken penicillin in the 70s and she said she had a rash in her throat felt a little tight but she denies states she had any shortness of breath. She does not call any allergies to sulfa medications/Bactrim when asked although says facial swelling. 08/23 Awaiting stool sample. No new complaints or overnight events. Creatinine no change. 1 episode of diarrhea last night Hypomagnesemia. IV fluids today. 08/24: Afebrile overnight. Blood and urine cultures no growth to date. Serum Cr level 2.4-->2.2, baseline level 1.3. C diff toxin PCR negative. c/o poor appetite. c/o loose stool. c/o general body weakness. Still on Rocephin. Constitutional Vitals: Vital Signs Temp Pulse Resp BP Pulse Ox 36.9 C 71 22 146/68 98 08/24/21 12:00 08/24/21 12:00 08/24/21 12:00 08/24/21 12:00 08/24/21 12:00 Period Temp Pulse Resp BP Sys/Lucero Pulse Ox Last 24 Hr 36.8 C-36.9 C 71-84 14-22 138-152/58-69 95-98 Intake and Output 08/23/21 08/24/21 08/24/21 21:59 05:59 13:59 Intake Total 790 1300 120 Output Total 550 Balance 240 1300 120 Weight 72.756 kg Intake & Output: Intake & Output 08/23/21 08/24/21 08/24/21 21:59 05:59 13:59 Intake Total 790 1300 120 Output Total 550 Balance 240 1300 120 Weight 72.756 kg Intake: IV 50 1000 Sodium Chloride 0.9% 1,000 ml @ 1000 75 mls/hr IV .[id number] [facility] Rx#: [id number] Rocephin 1 gm In Dextrose 5% in 50 Water 50 ml @ 100 mls/hr IV Q24H [facility] Rx#:[id number] Oral 740 300 120 Output: Urine Catheter Amount 350 Emesis 200 Other: Meal Dinner Breakfast Percent of Meal Consumed 75% 75% Feeding Ability Assist with Tray Set Up Assist with Tray Set Up Urine Appearance Clear Uretheral (Lei) Clear Urine Color Straw Urine Odor Normal Stool Size Small Small Stool Color Brown Brown Stool Consistency Soft Soft Liquid Liquid # Bowel Movements 1 1 General appearance: cooperative, no acute distress and obese Head Head exam: Present atraumatic and normal inspection Eye Eye exam: Present normal appearance ENT ENT exam: Present mucous membranes moist, normal exam and normal external ear exam Neck Neck exam: Present normal inspection Respiratory Respiratory exam: Present normal respiratory exam Cardiovascular Cardiovascular exam: Present irregular rhythm GI/Abdominal GI/Abdominal exam: Present normal bowel sounds Additional comments: Lei catheter in place Back Exam Back exam: Present normal inspection Neurological Exam Neurological exam: Present alert and oriented X3 Skin Skin exam: Present intact and warm OBJ DATA Labs CBC & Chem 7: 08/24/21 05:46 08/24/21 05:46 Labs: Abnormal Lab Results 08/24/21 08/24/21 08/23/21 05:46 05:46 05:21 WBC 2.9 L RBC 3.35 L Hgb 9.1 L Hct 28.5 L RDW 16.4 H Lymph % (Auto) 11.6 L [place] % (Auto) 12.7 H Lymph # (Auto) 0.34 L Chloride 110 H Carbon Dioxide 20 L 21 L BUN 24 H Creatinine 2.2 H 2.4 H Glucose Uric Acid 8.5 H Calcium 8.0 L 7.8 L Magnesium 1.5 L GGT 45 H Total Protein 5.6 L 5.4 L Albumin 2.6 L 2.5 L Albumin/Globulin Ratio 0.9 L 0.9 L Urine Appearance Urine Protein Ur Leukocyte Esterase Urine RBC Urine WBC Ur Squamous Epith Cells Urine Bacteria Hyaline Casts Other Casts Urine Mucus 08/23/21 08/22/21 08/22/21 05:21 20:38 13:35 WBC 2.8 L RBC 3.22 L Hgb 8.9 L Hct 27.1 L RDW 16.1 H Lymph % (Auto) 11.8 L [place] % (Auto) Lymph # (Auto) 0.33 L Chloride Carbon Dioxide BUN Creatinine Glucose Uric Acid Calcium Magnesium GGT Total Protein Albumin Albumin/Globulin Ratio Urine Appearance Cloudy A Cloudy A Urine Protein 30 A 30 A Ur Leukocyte Esterase 500 A 500 A Urine RBC 13 H 15 H Urine WBC 108 H 127 H Ur Squamous Epith Cells 14 H Urine Bacteria Mod A Few A Hyaline Casts 18 H Other Casts Few A Urine Mucus Few A 08/22/21 08/22/21 11:50 11:50 WBC 3.0 L RBC Hgb 10.2 L Hct 31.2 L RDW 15.9 H Lymph % (Auto) 8.9 L [place] % (Auto) Lymph # (Auto) 0.27 L Chloride Carbon Dioxide BUN Creatinine 2.4 H Glucose 145 H Uric Acid Calcium 8.4 L Magnesium GGT Total Protein Albumin 3.0 L Albumin/Globulin Ratio 0.9 L Urine Appearance Urine Protein Ur Leukocyte Esterase Urine RBC Urine WBC Ur Squamous Epith Cells Urine Bacteria Hyaline Casts Other Casts Urine Mucus Meds: Medications Acetaminophen (Acetaminophen 325 Mg Tablet) 650 mg PO Q6HP PRN; Protocol PRN Reason: Per Pain Protocol/Fever > 101 Albuterol/Ipratropium (Ipratropium/Albuterol 3 Ml Ampul.Neb) 3 ml NEB Q4HP PRN PRN Reason: Shortness Of Breath Apixaban (Apixaban 5 Mg Tablet) 5 mg PO BID [facility] Last Admin: 08/24/21 09:07 Dose: 5 mg Documented by: Ceftriaxone Sodium (Ceftriaxone 1 Gm Vial) 1 gm IV Q24H [facility] Last Admin: 08/24/21 09:13 Dose: 1 gm Documented by: Dextrose (Dextrose 50% 50 Ml Vial) 0 ml IV UD PRN PRN Reason: Hypoglycemia Diagnostic Test (Pha) (Accu-Chek 1 Each Strip) 1 each FS ACHS [facility] Last Admin: 08/24/21 11:23 Dose: 1 each Documented by: Glucose (Dextrose 31 Gm Oral.Susp) 15 gm PO PRN PRN PRN Reason: Hypoglycemia Potassium Chloride 40 meq/ (Dextrose) 520 mls @ 130 mls/hr IV UD PRN PRN Reason: Potassium < 3 Magnesium Sulfate (Magnesium Sulfate) 2 gm in 50 mls @ 50 mls/hr IV UD PRN PRN Reason: Magnesium </= 1.6 Insulin Glargine (Insulin Glargine, Human 1 Unit/0.01 Ml) [address] [facility] Last Admin: 08/23/21 20:12 Dose: Not Given Documented by: Insulin Human Lispro (Insulin Lispro 1 Unit/0.01 Ml Unit) 0 unit SQ [facility]; Protocol Last Admin: 08/24/21 11:24 Dose: 4 units Documented by: Loperamide HCl (Loperamide 2 Mg Capsule) 2 mg PO Q2HP PRN PRN Reason: Diarrhea Metoprolol Succinate (Metoprolol Succinate 25 Mg Tab.Xl.24h) 25 mg PO QDAY [facility] Last Admin: 08/24/21 09:07 Dose: 25 mg Documented by: Metoprolol Tartrate (Metoprolol Tartrate 5 Mg/5 Ml Vial) 5 mg IV Q2HP PRN PRN Reason: Tachyarrhythmias HR>110 Ondansetron HCl (Ondansetron 4 Mg/2 Ml Vial) 4 mg IV Q4HP PRN PRN Reason: Nausea And Vomiting Last Admin: 08/23/21 12:56 Dose: 4 mg Documented by: Potassium Chloride (Potassium Chloride 20 Meq Tablet) 40 meq PO UD PRN PRN Reason: Potssium is 3-3.5 Last Admin: 08/23/21 14:54 Dose: 40 meq Documented by: Potassium Chloride (Potassium Chloride 20 Meq Tablet) 40 meq PO UD PRN PRN Reason: Potassium < 3 Sodium Chloride (0.9 % Sodium Chloride 10 Ml Syringe) 10 ml IV Q8 [facility] Last Admin: 08/24/21 04:08 Dose: Not Given Documented by: A/P Assessment and plan (1) Stage 2 acute kidney injury: Status: Acute (2) Chronic kidney disease (CKD) stage G3b/A2, moderately decreased glomerular f iltration rate (GFR) between 30-44 mL/min/1.73 square meter and albuminuria creatinine ratio between 30-299 mg/g: Status: Chronic (3) Anemia due to stage 3b chronic kidney disease: Status: Acute (4) Hypertension in stage 3 chronic kidney disease due to type 2 diabetes mellitus: Status: Chronic (5) Urinary tract infection, site not specified: Status: Chronic (6) USP (current) use of anticoagulants: Status: Chronic (7) Atrial fibrillation, permanent: Status: Acute Narrative A/P Narrative: Assessment and Plans: 1. UTI: Stays in inpatient med surg cbc w/ auto diff in the morning to trend WBC level Blood culture no growth to date Urine culture no growth to date Rocephin Tylenol PRN fever NS@75cc/hr Physical therapy Occupational therapy 2. Stage 2 LUISA in the context of CKD stage 3: Avoid nephrotoxic agents NS@75cc/hr CMP in the morning to trend kidney functions 3. Essential HTN and T2DM with CKD stage 3: Currently normotensive Metoprolol XL 25mg PO daily Insulin Lantus 20 unit HS Correctional scale insulin AC HS Accu Chek AC HS Hypoglycemia protocol Diabetic diet 4. Permanent atrial fibrillation: Toprol XL for rate control Eliquis as anticoagulant GI ppx: not currently indicated DVT ppx: Eliquis Code status: Full Prognosis: guarded Disposition: inpatient med surg Time Spent With Patient Time: Total time spent is greater than 50% in coordination of care (as documented) at patient's floor/unit and/or counseling patient: Total time spent with greater than 50% in coordination of care (as documented) at patient's floor/unit and/or counseling patient:: Greater than 35 minutes QUALITY VTE Deep Vein Thrombosis/Pulmonary Embolism Present on Admission: No
[2021-08-24] MEDS: 0.9 % SODIUM CHLORIDE 1,000 ML IV SCH (14:11)
[2021-08-24] MEDS: LOPERAMIDE 2 MG CAPSULE PO PRN ×2 (20:28→21:52)
[2021-08-24] MEDS: INSULIN GLARGINE, HUMAN 1 UNIT/0.01 ML SQ SCH (20:28)
[2021-08-25] MEDS: 0.9 % SODIUM CHLORIDE 1,000 ML IV SCH ×2 (02:28→16:45)
[2021-08-25] MEDS: 0.9 % SODIUM CHLORIDE 10 ML SYRINGE IV SCH ×3 (04:21→21:32)
[2021-08-25 07:03] LABS: Basophils # (Auto) 0.01 K/mcL (0.00-0.30); Basophils % (Auto) 0.3 % (0.0-2.0); Eosinophils # (Auto) 0.22 K/mcL (0.00-0.70); Eosinophils % (Auto) 7.4 % (0.0-7.0); Hematocrit 27.3 % (34.1-44.9); Hemoglobin 8.4 g/dL (11.2-15.7); Lymphocytes # (Auto) 0.35 K/mcL (1.50-4.80); Lymphocytes % (Auto) 11.7 % (15.5-49.0); Mean Cell Volume 87.2 fL (80.0-100.0); Mean Corpuscular HGB Conc 30.8 g/dL (31.0-36.0); Mean Platelet Volume 9.4 fL (7.4-10.4); Monocytes # (Auto) 0.36 K/mcL (0.10-0.90); Monocytes % (Auto) 12.1 % (1.0-12.0); Neutrophils % (Auto) 68.5 % (38.0-78.0); Platelet Count 151 K/mcL (140-440); RBC 3.13 M/mcL (3.59-5.38); Red Cell Distribution Width 16.6 % (11.5-14.5)
[2021-08-25] MEDS: INSULIN LISPRO 1 UNIT/0.01 ML UNIT SQ SCH ×4 (07:20→21:30)
[2021-08-25] MEDS: cefTRIAXone 1 GM VIAL IV SCH (08:35)
[2021-08-25] MEDS: APIXABAN 5 MG TABLET PO SCH ×2 (08:36→21:30)
[2021-08-25] MEDS: METOPROLOL SUCCINATE 25 MG TAB.XL.24H PO SCH (08:36)
[2021-08-25] MEDS: LOPERAMIDE 2 MG CAPSULE PO PRN (08:42)
[2021-08-25 09:25] LABS: ALT/SGPT < 5 U/L (<40); AST/SGOT 22 U/L (<32); Albumin 2.4 gm/dL (3.2-5.2); Albumin/Globulin Ratio 0.9 (1.0-2.3); Alkaline Phosphatase 86 U/L (39-117); Bilirubin,Total 0.3 mg/dL (0.1-1.0); Blood Urea Nitrogen 24 mg/dL (8-23); Calcium 7.7 mg/dL (8.6-10.4); Carbon Dioxide 18 mmol/L (22-30); Chloride 110 mmol/L (96-108); Globulin 2.7 gm/dL (2.2-3.7); Glomerular Filtration Rate 25; Glucose 86 mg/dL (70-105); Phosphorous 3.5 mg/dL (2.5-4.5)
--- NOTE | 2021-08-25 14:19 | Internal Med Progress Note ---
SUBJECTIVE Subjective Patient information: Note initiated : 08/25/21 at 2:15 pm Service Date, if different from initiated Date: [] Patient: Lizet Crowley 70 y/o F admitted on 08/22/21 for weakness. Chief Complaint: [UTI] Interval history: Patient presents to the ED with generalized weakness and some diarrhea. Patient has been dealing with a urinary tract infection recently. She was started on Macrobid and then was switched to Cipro and then she did not tolerate Cipro very well she developed nausea vomiting diarrhea and that she switched ba ck to Macrobid. Her creatinine is elevated baseline is typically one half and she is 2.4. She is so weak that she cannot get the bathroom and her cannot take care of her. She had a history of recurrent UTIs and she is to see Maryann but has not seen a urologist since then. Last episode nausea vomiting was 3 days ago but she still having the diarrhea she says 2 to 4-day watery. Her allergies list penicillins anaphylaxis, she had last taken penicillin in the 70s and she said she had a rash in her throat felt a little tight but she denies states she had any shortness of breath. She does not call any allergies to sulfa medications/Bactrim when asked although says facial swelling. 08/23 Awaiting stool sample. No new complaints or overnight events. Creatinine no change. 1 episode of diarrhea last night Hypomagnesemia. IV fluids today. 08/24: Afebrile overnight. Blood and urine cultures no growth to date. Serum Cr level 2.4-->2.2, baseline level 1.3. C diff toxin PCR negative. c/o poor appetite. c/o loose stool. c/o general body weakness. Still on Rocephin. 08/25: Afebrile overnight. Urine culture grew S. aureus and K. pneumoniae. Please see culture reports for sensitivity. Blood culture no growth to date. Serum Cr level 2.4-->2.2-->2.0, baseline level 1.3. c/o chills, denies fever or chills. c/o general body weakness. Denies any pain or discomfort. Constitutional Vitals: Vital Signs Temp Pulse Resp BP Pulse Ox 36.4 C 78 20 142/60 97 08/25/21 12:00 08/25/21 12:00 08/25/21 12:00 08/25/21 12:00 08/25/21 12:00 Period Temp Pulse Resp BP Sys/Lucero Pulse Ox Last 24 Hr 36.4 C-37.2 C 70-84 12-20 123-142/51-62 95-97 Intake and Output 08/25/21 08/25/21 08/25/21 05:59 13:59 21:59 Intake Total 1321 300 Output Total 450 Balance 871 300 Intake & Output: Intake & Output 08/25/21 08/25/21 08/25/21 05:59 13:59 21:59 Intake Total 1321 300 Output Total 450 Balance 871 300 Intake: Nourishment/Supplement quantity 200 (ml) IV 921 Sodium Chloride 0.9% 1,000 ml @ 921 75 mls/hr IV .[id number] [facility] Rx#: [id number] Oral 200 300 Output: Urine Catheter Amount 450 Other: Meal Lunch Percent of Meal Consumed 75% Feeding Ability Assist with Tray Set Up Urine Appearance Clear Uretheral (Lei) Clear Urine Color Bright Yellow Uretheral (Lei) Bright Yellow Stool Size Moderate Moderate Stool Color Brown Brown Stool Consistency Loose Liquid # of times incontinent of 1 Bowels General appearance: average body habitus, cooperative and no acute distress Head Head exam: Present atraumatic and normal inspection Eye Eye exam: Present normal appearance ENT ENT exam: Present mucous membranes moist, normal exam and normal external ear exam Neck Neck exam: Present normal inspection Respiratory Respiratory exam: Present normal respiratory exam Cardiovascular Cardiovascular exam: Present irregular rhythm GI/Abdominal GI/Abdominal exam: Present normal bowel sounds Additional comments: Lei catheter in place Back Exam Back exam: Present normal inspection Neurological Exam Neurological exam: Present alert and oriented X3 Skin Skin exam: Present intact and warm OBJ DATA Labs CBC & Chem 7: 08/25/21 05:24 08/25/21 05:24 Labs: Abnormal Lab Results 08/25/21 08/25/21 08/24/21 05:24 05:24 05:46 WBC 3.0 L RBC 3.13 L Hgb 8.4 L Hct 27.3 L MCHC 30.8 L RDW 16.6 H Lymph % (Auto) 11.7 L [place] % (Auto) 12.1 H Eos % (Auto) 7.4 H Lymph # (Auto) 0.35 L Chloride 110 H 110 H Carbon Dioxide 18 L 20 L BUN 24 H Creatinine 2.0 H 2.2 H Uric Acid Calcium 7.7 L 8.0 L Magnesium GGT Total Protein 5.1 L 5.6 L Albumin 2.4 L 2.6 L Albumin/Globulin Ratio 0.9 L 0.9 L Urine Appearance Urine Protein Ur Leukocyte Esterase Urine RBC Urine WBC Ur Squamous Epith Cells Urine Bacteria Hyaline Casts Other Casts Urine Mucus 08/24/21 08/23/21 08/23/21 05:46 05:21 05:21 WBC 2.9 L 2.8 L RBC 3.35 L 3.22 L Hgb 9.1 L 8.9 L Hct 28.5 L 27.1 L MCHC RDW 16.4 H 16.1 H Lymph % (Auto) 11.6 L 11.8 L [place] % (Auto) 12.7 H Eos % (Auto) Lymph # (Auto) 0.34 L 0.33 L Chloride Carbon Dioxide 21 L BUN 24 H Creatinine 2.4 H Uric Acid 8.5 H Calcium 7.8 L Magnesium 1.5 L GGT 45 H Total Protein 5.4 L Albumin 2.5 L Albumin/Globulin Ratio 0.9 L Urine Appearance Urine Protein Ur Leukocyte Esterase Urine RBC Urine WBC Ur Squamous Epith Cells Urine Bacteria Hyaline Casts Other Casts Urine Mucus 08/22/21 08/22/21 20:38 13:35 WBC RBC Hgb Hct MCHC RDW Lymph % (Auto) [place] % (Auto) Eos % (Auto) Lymph # (Auto) Chloride Carbon Dioxide BUN Creatinine Uric Acid Calcium Magnesium GGT Total Protein Albumin Albumin/Globulin Ratio Urine Appearance Cloudy A Cloudy A Urine Protein 30 A 30 A Ur Leukocyte Esterase 500 A 500 A Urine RBC 13 H 15 H Urine WBC 108 H 127 H Ur Squamous Epith Cells 14 H Urine Bacteria Mod A Few A Hyaline Casts 18 H Other Casts Few A Urine Mucus Few A Meds: Medications Acetaminophen (Acetaminophen 325 Mg Tablet) 650 mg PO Q6HP PRN; Protocol PRN Reason: Per Pain Protocol/Fever > 101 Albuterol/Ipratropium (Ipratropium/Albuterol 3 Ml Ampul.Neb) 3 ml NEB Q4HP PRN PRN Reason: Shortness Of Breath Apixaban (Apixaban 5 Mg Tablet) 5 mg PO BID [facility] Last Admin: 08/25/21 08:36 Dose: 5 mg Documented by: Ceftriaxone Sodium (Ceftriaxone 1 Gm Vial) 1 gm IV Q24H [facility] Last Admin: 08/25/21 08:35 Dose: 1 gm Documented by: Dextrose (Dextrose 50% 50 Ml Vial) 0 ml IV UD PRN PRN Reason: Hypoglycemia Diagnostic Test (Pha) (Accu-Chek 1 Each Strip) 1 each FS [facility] Last Admin: 08/25/21 11:18 Dose: 1 each Documented by: Glucose (Dextrose 31 Gm Oral.Susp) 15 gm PO PRN PRN PRN Reason: Hypoglycemia Potassium Chloride 40 meq/ (Dextrose) 520 mls @ 130 mls/hr IV UD PRN PRN Reason: Potassium < 3 Magnesium Sulfate (Magnesium Sulfate) 2 gm in 50 mls @ 50 mls/hr IV UD PRN PRN Reason: Magnesium </= 1.6 Sodium Chloride (Sodium Chloride 0.9%) 1,000 mls @ 75 mls/hr IV .[id number] [facility] Last Admin: 08/25/21 02:28 Dose: 75 mls/hr Documented by: Insulin Glargine (Insulin Glargine, Human 1 Unit/0.01 Ml) 20 unit SQ [facility] Last Admin: 08/24/21 20:28 Dose: Not Given Documented by: Insulin Human Lispro (Insulin Lispro 1 Unit/0.01 Ml Unit) 0 unit SQ [facility]; Protocol Last Admin: 08/25/21 11:19 Dose: 2 units Documented by: Loperamide HCl (Loperamide 2 Mg Capsule) 2 mg PO Q2HP PRN PRN Reason: Diarrhea Last Admin: 08/25/21 08:42 Dose: 2 mg Documented by: Metoprolol Succinate (Metoprolol Succinate 25 Mg Tab.Xl.24h) 25 mg PO QDAY [facility] Last Admin: 08/25/21 08:36 Dose: 25 mg Documented by: Metoprolol Tartrate (Metoprolol Tartrate 5 Mg/5 Ml Vial) 5 mg IV Q2HP PRN PRN Reason: Tachyarrhythmias HR>110 Ondansetron HCl (Ondansetron 4 Mg/2 Ml Vial) 4 mg IV Q4HP PRN PRN Reason: Nausea And Vomiting Last Admin: 08/23/21 12:56 Dose: 4 mg Documented by: Potassium Chloride (Potassium Chloride 20 Meq Tablet) 40 meq PO UD PRN PRN Reason: Potssium is 3-3.5 Last Admin: 08/23/21 14:54 Dose: 40 meq Documented by: Potassium Chloride (Potassium Chloride 20 Meq Tablet) 40 meq PO UD PRN PRN Reason: Potassium < 3 Sodium Chloride (0.9 % Sodium Chloride 10 Ml Syringe) 10 ml IV Q8 [facility] Last Admin: 08/25/21 13:36 Dose: Not Given Documented by: A/P Assessment and plan (1) Stage 2 acute kidney injury: Status: Acute (2) Chronic kidney disease (CKD) stage G3b/A2, moderately decreased glomerular filtration rate (GFR) between 30-44 mL/min/1.73 square meter and albuminuria creatinine ratio between 30-299 mg/g: Status: Chronic (3) Anemia due to stage 3b chronic kidney disease: Status: Acute (4) Hypertension in stage 3 chronic kidney disease due to type 2 diabetes mellitus: Status: Chronic (5) Urinary tract infection, site not specified: Status: Chronic (6) long term care pharmacist (current) use of anticoagulants: Status: Chronic (7) Atrial fibrillation, permanent: Status: Acute Narrative A/P Narrative: Assessment and Plans: 1. UTI: Stays in inpatient med surg cbc w/ auto diff in the morning to trend WBC level Blood culture no growth to date Urine culture grew S. aureus and K. pneumoniae. Please see culture reports for sensitivity Rocephin. Need 7 days course of antibiotics. Could switch to PO such as Keflex at discharge if needed Tylenol PRN fever NS@75cc/hr Physical therapy-->[facility] Occupational [facility] 2. Stage 2 LUISA in the context of CKD stage 3: Avoid nephrotoxic agents NS@75cc/hr CMP in the morning to trend kidney functions 3. Essential HTN and T2DM with CKD stage 3: Currently normotensive Metoprolol XL 25mg PO daily Insulin Lantus 20 unit HS Correctional scale insulin AC HS Accu Chek AC HS Hypoglycemia protocol Diabetic diet 4. Permanent atrial fibrillation: Toprol XL for rate control Eliquis as anticoagulant GI ppx: not currently indicated DVT ppx: Eliquis Code status: Full Prognosis: stable Disposition: inpatient med surg Time Spent With Patient Time: Total time spent is greater than 50% in coordination of care (as documented) at patient's floor/unit and/or counseling patient: Total time spent with greater than 50% in coordination of care (as documented) at patient's floor/unit and/or counseling patient:: Greater than 35 minutes QUALITY VTE Deep Vein Thrombosis/Pulmonary Embolism Present on Admission: No
[2021-08-25] MEDS: INSULIN GLARGINE, HUMAN 1 UNIT/0.01 ML SQ SCH (21:29)
[2021-08-26] MEDS: 0.9 % SODIUM CHLORIDE 10 ML SYRINGE IV SCH (05:35)
[2021-08-26] MEDS: 0.9 % SODIUM CHLORIDE 1,000 ML IV SCH (06:30)
[2021-08-26 06:51] LABS: Basophils # (Auto) 0.01 K/mcL (0.00-0.30); Basophils % (Auto) 0.3 % (0.0-2.0); Eosinophils # (Auto) 0.22 K/mcL (0.00-0.70); Eosinophils % (Auto) 7.2 % (0.0-7.0); Hematocrit 26.4 % (34.1-44.9); Hemoglobin 8.1 g/dL (11.2-15.7); Lymphocytes # (Auto) 0.32 K/mcL (1.50-4.80); Lymphocytes % (Auto) 10.5 % (15.5-49.0); Mean Corpuscular HGB Conc 30.7 g/dL (31.0-36.0); Mean Platelet Volume 9.1 fL (7.4-10.4); Monocytes # (Auto) 0.31 K/mcL (0.10-0.90); Monocytes % (Auto) 10.2 % (1.0-12.0); Neutrophils % (Auto) 71.8 % (38.0-78.0); Platelet Count 144 K/mcL (140-440); RBC 3.07 M/mcL (3.59-5.38); Red Cell Distribution Width 16.5 % (11.5-14.5)
[2021-08-26] MEDS: INSULIN LISPRO 1 UNIT/0.01 ML UNIT SQ SCH ×2 (07:18→11:18)
[2021-08-26] MEDS: METOPROLOL SUCCINATE 25 MG TAB.XL.24H PO SCH (08:20)
[2021-08-26] MEDS: APIXABAN 5 MG TABLET PO SCH (08:20)
[2021-08-26 08:30] LABS: ALT/SGPT 7 U/L (<40); AST/SGOT 20 U/L (<32); Albumin 2.1 gm/dL (3.2-5.2); Albumin/Globulin Ratio 0.8 (1.0-2.3); Alkaline Phosphatase 77 U/L (39-117); Bilirubin,Total 0.2 mg/dL (0.1-1.0); Blood Urea Nitrogen 22 mg/dL (8-23); Calcium 7.5 mg/dL (8.6-10.4); Carbon Dioxide 19 mmol/L (22-30); Chloride 113 mmol/L (96-108); Globulin 2.8 gm/dL (2.2-3.7); Glomerular Filtration Rate 26; Glucose 75 mg/dL (70-105); Phosphorous 3.3 mg/dL (2.5-4.5)
[2021-08-26] MEDS: cefTRIAXone 1 GM VIAL IV SCH (09:11)
--- NOTE | 2021-08-26 10:09 | Discharge Summary ---
Discharge Provider Provider Patient information: Note initiated : 08/26/21 at 10:07 am Service Date, if different from initiated Date: [] Patient: Lizet Crowley 70 y/o F admitted on 08/22/21 for weakness. Chief Complaint: [] Date of admission: 08/22/21 17:27 Discharge date: 08/26/21 Primary care physician: Maris Galeano Attending physician on admission: Eduard Lofton Pui Consults: 08/22/21 Consult to Physician [CONS] Stat Comment: Consulting Provider: Ludwig Rivera Reason For Exam: Physician to Consult Attending physician on discharge: Eduard Lofton Pui Discharge Meds Discharge Medications Home Medications acetaminophen 325 mg capsule (Tylenol) 325 mg PO .COMPLEX PRN 05/29/19 [History Confirmed 08/23/21 Last Taken Unknown] aflibercept 2 mg/0.05 mL intravitreal solution for injection (Eylea) 2 mg INTRAVITRE Q8W ml 05/29/19 [History Confirmed 08/23/21 Last Taken Unknown] furosemide 20 mg tablet 20 mg PO QAM 05/29/19 [History Confirmed 08/23/21 Last Taken Unknown] insulin aspart U-100 100 unit/mL subcutaneous solution See Rx Instructions SUB-Q TID 08/06/19 [History Confirmed 08/23/21 Last Taken Unknown] insulin glargine 100 unit/mL (3 mL) subcutaneous pen (Lantus Solostar U-100 Insulin) 20 unit SUB-Q QHS ml 08/06/19 [History Confirmed 08/23/21 Last Taken Unknown] estradiol See Rx Instructions VAGINAL .COMPLEX #42.5 g 08/07/19 [Rx Confirmed 08/23/21 Last Taken Unknown] apixaban 5 mg tablet (Eliquis) 5 mg PO BID 02/12/20 [History Confirmed 08/23/21 Last Taken Unknown] clobetasol 0.05 % topical cream 1 applic TOPICAL BID PRN g 04/09/21 [History Confirmed 07/07/21 Last Taken Unknown] metoprolol succinate 25 mg tablet,extended release 24 hr 25 mg PO QDAY tab 06/21/21 [History Confirmed 08/23/21 Last Taken Unknown] cephalexin 750 mg capsule (Keflex) 750 mg PO BID 4 Days #8 cap 08/26/21 [Rx Last Taken Unknown] COURSE Hospital Course Hospital course: Patient presents to the ED with generalized weakness and some diarrhea. Patient has been dealing with a urinary tract infection recently. She was started on Macrobid and then was switched to Cipro and then she did not tolerate Cipro very well she developed nausea vomiting diarrhea and that she switched back to Macrobid. Her creatinine is elevated baseline is typically one half and she is 2.4. She is so weak that she cannot get the bathroom and her cannot take care of her. She had a history of recurrent UTIs and she is to see Maryann but has not seen a urologist since then. Last episode nausea vomiting was 3 days ago but she still having the diarrhea she says 2 to 4-day watery. Her allergies list penicillins anaphylaxis, she had last taken penicillin in the 70s and she said she had a rash in her throat felt a little tight but she denies states she had any shortness of breath. She does not call any allergies to sulfa medications/Bactrim when asked although says facial swelling. 08/23 Awaiting stool sample. No new complaints or overnight events. Creatinine no change. 1 episode of diarrhea last night Hypomagnesemia. IV fluids today. 08/24: Afebrile overnight. Blood and urine cultures no growth to date. Serum Cr level 2.4-->2.2, baseline level 1.3. C diff toxin PCR negative. c/o poor appetite. c/o loose stool. c/o general body weakness. Still on Rocephin. 08/25: Afebrile overnight. Urine culture grew S. aureus and K. pneumoniae. Please see culture reports for sensitivity. Blood culture no growth to date. Serum Cr level 2.4-->2.2-->2.0, baseline level 1.3. c/o chills, denies fever or chills. c/o general body weakness. Denies any pain or discomfort. 08/26: Reached clinical stability, accepted by and being discharged to [facility]. Discharge diagnosis: urinary tract infection Time Spent with Patient Time attestation: Total time spent providing and/or coordinating discharge services: Time spent: Less than 30 minutes EXAM Constitutional Vitals: Temp Pulse Resp BP Pulse Ox 36.6 C 73 16 133/69 94 08/26/21 07:25 08/26/21 07:25 08/26/21 07:25 08/26/21 07:25 08/26/21 07:25 General appearance: cooperative and no acute distress Head Head exam: Present atraumatic and normocephalic Eye Eye exam: Present EOMI and PERRL ENT ENT exam: Present mucous membranes moist, normal exam and normal external ear exam Neck Neck exam: Present normal inspection; Absent lymphadenopathy, tenderness or thyromegaly Respiratory Respiratory exam: Absent accessory muscle use, respiratory distress or wheezes Cardiovascular Cardiovascular exam: Present irregular rhythm; Absent JVD GI/Abdominal GI/Abdominal exam: Present normal bowel sounds and soft; Absent organomegaly or tenderness Additional comments: Lei catheter in place Extremities Exam Extremities exam: Present full ROM, normal capillary refill and normal inspection; Absent tenderness Neurological Exam Neurological exam: Present alert, CN II-XII intact and oriented X3; Absent motor sensory deficit Psychiatric Psychiatric exam: Present normal affect and normal mood; Absent anxious or depressed Skin Skin exam: Present dry and intact Discharge Data Data Completed and Pending Labs on day of discharge: Labs from last 24 hours 08/26/21 08/26/21 05:25 05:25 WBC 3.0 L RBC 3.07 L Hgb 8.1 L Hct 26.4 L MCV 86.0 MCH 26.4 MCHC 30.7 L RDW 16.5 H Plt Count 144 MPV 9.1 Neut % (Auto) 71.8 Lymph % (Auto) 10.5 L Bacon % (Auto) 10.2 Eos % (Auto) 7.2 H Baso % (Auto) 0.3 Lymph # (Auto) 0.32 L Bacon # (Auto) 0.31 Eos # (Auto) 0.22 Baso # (Auto) 0.01 Absolute Neutrophils 2.18 Sodium 140 Potassium 4.0 Chloride 113 H Carbon Dioxide 19 L Anion Gap 8.0 BUN 22 Creatinine 1.9 H GFR Calculation 26 Glucose 75 Calcium 7.5 L Phosphorus 3.3 Magnesium 1.7 Total Bilirubin 0.2 AST 20 ALT 7 Alkaline Phosphatase 77 Total Protein 4.9 L Albumin 2.1 L Globulin 2.8 Albumin/Globulin Ratio 0.8 L Preliminary micro results at discharge 08/23/21 14:43 Blood Culture - Preliminary Blood 08/23/21 14:36 Blood Culture - Preliminary Blood Discharge Plan Patient/Caregiver Discharge Instructions Activity: increase activity as tolerated Diet: Renal/Consistent Carbs Prescriptions: New cephalexin [Keflex] 750 mg capsule 750 mg PO BID 4 Days Qty: 8 0RF Continued Eylea 2 mg/0.05 mL solution 2 mg INTRAVITRE Q8W 0RF furosemide 20 mg tablet 20 mg PO QAM 0RF acetaminophen [Tylenol] 325 mg capsule 325 mg PO .COMPLEX PRN (Reason: Pain) 0RF Rx Instructions: 325 mg PO PRN; Lantus Solostar U-100 Insulin 100 unit/mL (3 mL) insulin pen 20 unit SUB-Q QHS 0RF clobetasol 0.05 % cream 1 applic topical BID PRN0RF Rx Instructions: for tweeks then 5 days on and 2 days off as needed estradiol 0.01 % (0.1 mg/gram) cream See Rx Instructions VAGINAL .COMPLEX Qty: 42.5 2RF Rx Instructions: Apply 2-4 gms once daily for first 2 weeks, then 1 gm daily 3 times per week {example:on Monday, monday and monday] vaginal metoprolol succinate 25 mg tablet extended release 24 hr 25 mg PO QDAY 0RF Eliquis 5 mg tablet 5 mg PO BID 0RF insulin aspart U-100 100 unit/mL solution See Rx Instructions SUB-Q TID 0RF Rx Instructions: sliding scale subcut three times daily; Follow Up Plan Follow up with: Maris Galeano ARNP [Primary Care Provider] - Patient Disposition: Xfer SNF Prognosis: Good Rehab Potential: Good I certify that the patient requires SNF services: Yes Overall status at discharge: patient is progressing back to baseline Discharge Orders: Discharge Order (Routine); Ordered 08/26/21 Ordered By: Eduard OVIEDO VTE Deep Vein Thrombosis/Pulmonary Embolism Present on Admission: No
[2021-08-27] MEDS ORDERED: PNEUMOCOCCAL 23-VAL P-SAC VAC 0.5 ML SYRINGE IM ONE (10:00)
== END 2021-08-26 11:44 | DRG 690 ==
LOC: ED 11:18 → MEDSUR 17:27
PROVIDERS: ADMIT Internal Medicine; ATTEND Internal Medicine